=== PATIENT | female | born 1935 | race Hispanic/Latino ===

== ENCOUNTER 2019-07-31 18:12 | Emergency (ER) | payer MEDICARE ==
[~2019-07-31] VITALS: Ht 157.5 cm; Wt 54.4 kg
[~2019-07-31 18:12] MED LIST: AMLODIPINE-BEN1 EAC2 PO; ASPIR 8181 MG PO; HYDROCHLOROTHIA25 MG PO; SIMVASTATIN20 MG PO
--- OUTSIDE RECORDS SUMMARY | 2019-07-31 18:15 | XMS REPORT ---
Author [facility] Address Unknown Phone Unavailable Care Team Providers Care Wire Stitcher Machine Name Role Phone Unavailable Unavailable Payers Payer Name Policy Type Policy Number Effective Date Expiration Date Problems This patient has no known problems. Allergies, Adverse Reactions, Alerts Allergy Name Allergy Type Status Severity Reaction(s) Onset Date Inactive Date Treating Clinician Comments Gchcuov-Ksa-Zjq Reductase Inhibitor DA Active SV 2018-06-13 00:00:00 No Known Allergies DA Active U 2017-10-28 00:00:00 Medications This patient has no known medications.
[2019-07-31 22:09] LABS: BILIRUBIN,URINE NEGATIVE (NEGATIVE); CLARITY,URINE SL CLOUDY (CLEAR); COLOR,URINE YELLOW (YELLOW); KETONES,URINE NEGATIVE (NEGATIVE); LEUKOCYTE ESTERASE ,URINE NEGATIVE (NEGATIVE); NITRITE,URINE NEGATIVE (NEGATIVE); PROTEIN,URINE DIPSTICK NEGATIVE (NEGATIVE); URINE UROBILINOGEN 0.2 mg/dL (0.2 - 1)
[2019-07-31 22:22] LABS: BACTERIA,URINE MODERATE /HPF; HYALINE CASTS 0-1 (0-1)
[2019-07-31 22:49] VITALS: BP 138/76
== END 2019-07-31 22:53 | disposition home or self-care (01) ==
LOC: ER 18:13
DX: R30.0 Dysuria (principal); M54.5 Low back pain; I10 Essential (primary) hypertension; E78.5 Hyperlipidemia, unspecified; I50.9 Heart failure, unspecified; G30.9 Alzheimer's disease, unspecified; F02.80 Dementia in other diseases classified elsewhere, unspecified severity, without behavioral disturbance, psychotic disturbance, mood disturbance, and anxiety; F17.210 Nicotine dependence, cigarettes, uncomplicated
CPT/HCPCS: 81001; 99283